=== PATIENT | female | born 1945 | race Caucasian/White ===

== ENCOUNTER 2017-12-29 08:18 | Outpatient (CLI) | payer OTHER | END 2017-12-29 08:19 | disposition home or self-care (01) | LOC: BICMAMMO 08:18 | PROVIDERS: ATTEND Obstetrics & Gynecology | DX: Z12.31 Encounter for screening mammogram for malignant neoplasm of breast (principal) | CPT/HCPCS: 77063; 77067 ==

== ENCOUNTER 2019-08-30 09:29 | Outpatient (CLI) | payer MEDICARE ==
--- NOTE | 2019-08-30 10:58 | BD ---
BONE DENSITOMETRY USING DEXA: Date: 08/30/2019 HISTORY: Postmenopausal screening for osteoporosis. Disorder of cartilage, unspecified. FINDINGS: Lumbar Spine: BMD (g/cm2) L1 0.946 T-Score: -0.4 Z-Score: 1.6 L2 1.044 T-Score: 0.1 Z-Score: 2.4 L3 1.095 T-Score: 0.1 Z-Score: 2.4 L4 1.085 T-Score: 0.2 Z-Score: 2.6 L1-L4 1.046 T-Score: 0.0 Z-Score: 2.2 Femoral Neck: 0.753 T-Score: -0.9 Z-Score: 1.1 Total Femur: 0.943 T-Score: 0.0 Z-Score: 1.6 IMPRESSION: Normal bone mineral density. POS: [facility]
== END 2019-08-30 09:30 | disposition home or self-care (01) ==
LOC: BICMAMMO 09:29
PROVIDERS: ATTEND Internal Medicine
DX: Z13.820 Encounter for screening for osteoporosis (principal); M94.9 Disorder of cartilage, unspecified
CPT/HCPCS: 77080

== ENCOUNTER 2020-08-09 23:12 | Emergency (ER) | payer MEDICARE | END 2020-08-09 23:55 | disposition home or self-care (01) | LOC: ERS 23:12 | DX: I10 Essential (primary) hypertension (principal); E11.9 Type 2 diabetes mellitus without complications; Z87.891 Personal history of nicotine dependence | CPT/HCPCS: 93005 ==

== ENCOUNTER 2021-05-05 09:55 | Outpatient (CLI) | payer MEDICARE | END 2021-05-05 09:56 | disposition home or self-care (01) | LOC: BICMAMMO 09:55 | PROVIDERS: ATTEND Internal Medicine | DX: Z12.31 Encounter for screening mammogram for malignant neoplasm of breast (principal) | CPT/HCPCS: 77063; 77067 ==

== ENCOUNTER 2022-05-11 10:00 | Outpatient (CLI) | payer MEDICARE | END 2022-05-11 10:01 | disposition home or self-care (01) | LOC: BICMAMMO 10:00 | PROVIDERS: ATTEND Internal Medicine | DX: Z12.31 Encounter for screening mammogram for malignant neoplasm of breast (principal); N60.22 Fibroadenosis of left breast; N60.21 Fibroadenosis of right breast | CPT/HCPCS: 77063; 77067 ==

== ENCOUNTER 2023-06-09 09:29 | Outpatient (CLI) | payer MEDICARE | END 2023-06-09 09:30 | disposition home or self-care (01) | LOC: BICMAMMO 09:29 | PROVIDERS: ATTEND Internal Medicine | DX: Z12.31 Encounter for screening mammogram for malignant neoplasm of breast (principal) | CPT/HCPCS: 77063; 77067 ==

== ENCOUNTER 2024-07-04 09:00 | Outpatient (CLI) | payer MEDICARE, OTHER | END 2024-07-04 09:01 | disposition home or self-care (01) | LOC: BICMAMMO 09:00 | PROVIDERS: ATTEND Internal Medicine | DX: Z12.31 Encounter for screening mammogram for malignant neoplasm of breast (principal) | CPT/HCPCS: 77063; 77067 ==